=== PATIENT | female | born 1985 | race Caucasian/White ===

== ENCOUNTER 2019-01-19 04:40 | Observation (INO) | payer OTHER ==
[~2019-01-19] VITALS: Ht 170.2 cm; Wt 71.8 kg
[2019-01-19] MEDS ORDERED: MORPHINE SULFATE 4 MG/ML, 1ML ONE ×2 (05:15→06:26)
[2019-01-19] MEDS ORDERED: ONDANSETRON 2MG/ML, 2ML ONE (05:15)
[2019-01-19] MEDS: MORPHINE SULFATE 4 MG/ML, 1ML IVPush PRN ×2 (05:18→06:28)
--- NOTE | 2019-01-19 05:23 | NUR ---
PT HERE FOR VAGINAL BLEEDING THAT STARTED THURSDAY. CRAMPING HAS GOTTEN PROGRESSIVELY WORSE SINCE THURSDAY. VSS. PIV PLACED. PT MEDICATED FOR PAIN. PT NOW RESTING AND NO OTHER NEEDS AT THIS TIME. CALL LIGHT IN REACH
[2019-01-19] MEDS ORDERED: SODIUM CHLORIDE FLUSH 10ML SYR IVF ONE (05:30)
[2019-01-19] MEDS ORDERED: ONDANSETRON 2MG/ML, 2ML IVPush ONE (05:30)
[2019-01-19] MEDS: PLEASE ENTER ALLERGIES MC SCH ×2 (05:30→13:30)
--- NOTE | 2019-01-19 05:30 | NUR ---
PT TO US.
[2019-01-19 05:51] LABS: BASOPHILS # (AUTO) 0.04 x10^3/uL (0-0.1); BASOPHILS % (AUTO) 0 % (0-1); EOSINOPHILS # (AUTO) 0.29 x10^3/uL (0-0.4); EOSINOPHILS % (AUTO) 3 % (1-7); LYMPHOCYTES # (AUTO) 3.04 x10^3/uL (1-3.4); LYMPHOCYTES % (AUTO) 32 % (22-44); MD NO; MEAN CORPUSCULAR HEMOGLOBIN 30.2 pg (27.0-34.8); MEAN CORPUSCULAR VOLUME 88.7 fL (80-100); MEAN PLATELET VOLUME 8.6 fL (7.4-10.4); MONOCYTES # (AUTO) 0.73 x10^3/uL (0.2-0.8); MONOCYTES % (AUTO) 8 % (2-9); NEUTROPHILS # (AUTO) 5.53 x10^3/uL (1.8-6.8); NEUTROPHILS % (AUTO) 58 % (42-75); PLATELET COUNT 266 x10^3/uL (130-400); RED BLOOD COUNT 4.08 x10^6/uL (3.82-5.3); RED CELL DISTRIBUTION WIDTH 12.8 % (9.6-15.2)
[2019-01-19 05:56] LABS: ALBUMIN 3.5 g/dL (3.4-5.0); ANION GAP 8 mmol/L (5-15); CALCIUM 8.5 mg/dL (8.5-10.1); CHLORIDE 110 mmol/L (98-107)
--- NOTE | 2019-01-19 06:32 | NUR ---
PT REMEDICATED FOR PAIN. VSS. WAITING FOR US RESULTS. CALL LIGHT IN REACH
--- NOTE | 2019-01-19 07:06 | NUR ---
REPORT TO CADE LOMELI
--- NOTE | 2019-01-19 07:24 | NUR ---
RECEIVED REPORT AND ASSUMED PT. CARE. PT. IS RESTING WITHOUT CONCERNS. ANTONIO MATT TO THE PT.'S BEDSIDE TO DISCUSS THE PLAN OF CARE. 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 PT. HAS THE CALL LIGHT IN PLACE AND THE SIDERAILS REMAIN UP X 2.
[2019-01-19] MEDS ORDERED: DIAZEPAM 5 MG/ML, 2ML IV ONE (07:30)
--- NOTE | 2019-01-19 07:51 | NUR ---
PT. WAS MEDICATED ORDERED. PT. HAS THE PULSE OX AND BP CUFF IN PLACE. PT.'S CHUX WAS CHANGED AND SKIN CARE GIVEN. MODERATE AMOUNT OF BLOOD PRESENT. PT. HAS THE SIDERAILS UP X 2 AND THE CALL LIGHT IS IN PLACE.
[2019-01-19] MEDS ORDERED: SODIUM CHLORIDE 0.9% 1,000 ML IV ONE (08:16)
[2019-01-19] MEDS ORDERED: DIAZEPAM 5 MG/ML, 2ML IV PRN (08:30)
[2019-01-19] MEDS ORDERED: SODIUM CHLORIDE FLUSH 10ML SYR IVF PRN (08:30)
[2019-01-19] MEDS ORDERED: ONDANSETRON 2MG/ML, 2ML IVPush PRN (08:30)
--- NOTE | 2019-01-19 08:48 | NUR ---
PT. STATES RELIEF FROM MEDICATIONS. PT. IS RESTING WITH THE HOB ELEVATED GREATER THAN 30 DEGREES. PT. HAS BLANKETS IN PLACE FOR WARMTH. SIDERAILS REMAIN UP X 2 WITH THE CALL LIGHT IN PLACE. VSS.
--- NOTE | 2019-01-19 09:54 | NUR ---
NO CHANGES AT THIS TIME.
--- NOTE | 2019-01-19 10:36 | NUR ---
PT. HAS C/O PAIN RETURNING. DISCUSSED WITH ANTONIO ESCOBAR. PT. WAS MEDICATED ORDERED. REPORT WAS CALLED TO BORIS LOMELI. PT. IS RTG.
[2019-01-19] MEDS ORDERED: HYDROmorphone 2 MG/ML, 1ML ONE (10:42)
[2019-01-19] MEDS ORDERED: HYDROmorphone 2 MG/ML, 1ML IVPush PRN (11:00)
[2019-01-19 12:15] VITALS: BP 103/63
[2019-01-19] MEDS ORDERED: MISOPROSTOL 200 MCG TABLET ONE (15:53)
[2019-01-19] MEDS ORDERED: BUPIVACAINE/PF 0.25% ONE (15:53)
[2019-01-19] MEDS ORDERED: OXYTOCIN 10 UNITS/ML, 1ML ONE (15:54)
[2019-01-19] MEDS ORDERED: EPINEPHRINE 1 MG/ML, 1ML ONE (15:54)
[2019-01-19] MEDS ORDERED: METHYLERGONOVINE 0.2 MG/ML IM ONE (15:54)
[2019-01-19] MEDS ORDERED: FENTANYL PF 250 MCG/5ML ONE (16:06)
[2019-01-19] MEDS ORDERED: MIDAZOLAM 1 MG/ML, 2ML ONE (16:06)
[2019-01-19] MEDS ORDERED: LIDOCAINE-MPF 2% ,5ML ONE (16:07)
[2019-01-19] MEDS ORDERED: PROPOFOL 10 MG/ML, 20ML ONE (16:07)
== END 2019-01-19 17:30 | disposition home or self-care (01) ==
LOC: ED 07:12 → EDIP 08:16 → 3NW 11:13
PROVIDERS: ADMIT Obstetrics & Gynecology Reproductive Endocrinology; ATTEND Obstetrics & Gynecology Reproductive Endocrinology
DX: O30.002 Twin pregnancy, unspecified number of placenta and unspecified number of amniotic sacs, second trimester (principal); O21.9 Vomiting of pregnancy, unspecified; O36.4XX0 Maternal care for intrauterine death, not applicable or unspecified; Z3A.10 10 weeks gestation of pregnancy
CPT/HCPCS: 36415; 76801; 80048; 82040; 84702; 85025; 86901; 96374; 96375; 96376; 99284; G0378; J0171; J1170; J2250; J2405; J2704; J3360; J3490; J3010; J2210; J2270; J2590

== ENCOUNTER → 2019-01-26 | Outpatient (CLI) | payer OTHER | END | disposition home or self-care (01) | LOC: LAB 16:03 | PROVIDERS: ATTEND Obstetrics & Gynecology Reproductive Endocrinology | DX: N94.9 Unspecified condition associated with female genital organs and menstrual cycle (principal); N91.2 Amenorrhea, unspecified | CPT/HCPCS: 36415; 81256; 84702 ==

== ENCOUNTER → 2019-02-03 | Outpatient (CLI) | payer OTHER | END | disposition home or self-care (01) | LOC: LAB 17:25 | PROVIDERS: ATTEND Obstetrics & Gynecology Reproductive Endocrinology | DX: N91.2 Amenorrhea, unspecified (principal) | CPT/HCPCS: 36415; 84702 ==

== ENCOUNTER → 2019-02-10 | Outpatient (CLI) | payer OTHER | END | disposition home or self-care (01) | LOC: LAB 17:40 | PROVIDERS: ATTEND Obstetrics & Gynecology Reproductive Endocrinology | DX: N91.2 Amenorrhea, unspecified (principal) | CPT/HCPCS: 36415; 84702 ==

== ENCOUNTER 2019-02-11 10:03 | Outpatient (CLI) | payer OTHER ==
[2019-02-11 10:40] LABS: BASOPHILS # (AUTO) 0.03 x10^3/uL (0-0.1); BASOPHILS % (AUTO) 1 % (0-1); EOSINOPHILS % (AUTO) 2 % (1-7); LYMPHOCYTES # (AUTO) 2.24 x10^3/uL (1-3.4); LYMPHOCYTES % (AUTO) 36 % (22-44); MD NO; MEAN CORPUSCULAR HEMOGLOBIN 29.9 pg (27.0-34.8); MEAN CORPUSCULAR HGB CONC 32.6 g/dL (32.4-35.8); MEAN CORPUSCULAR VOLUME 91.8 fL (80-100); MEAN PLATELET VOLUME 8.9 fL (7.4-10.4); MONOCYTES # (AUTO) 0.45 x10^3/uL (0.2-0.8); MONOCYTES % (AUTO) 7 % (2-9); NEUTROPHILS # (AUTO) 3.45 x10^3/uL (1.8-6.8); NEUTROPHILS % (AUTO) 55 % (42-75); PLATELET COUNT 271 x10^3/uL (130-400); RED BLOOD COUNT 4.39 x10^6/uL (3.82-5.3); RED CELL DISTRIBUTION WIDTH 13.3 % (9.6-15.2)
[2019-02-11 10:48] LABS: ALANINE AMINOTRANSFERASE 35 U/L (12-78); ALBUMIN 4.2 g/dL (3.4-5.0); ANION GAP 8 mmol/L (5-15); CALCIUM 8.9 mg/dL (8.5-10.1); CHLORIDE 106 mmol/L (98-107)
[2019-02-11 10:57] LABS: ALKALINE PHOSPHATASE 52 U/L (45-117); BILIRUBIN,TOTAL 0.5 mg/dL (0.2-1.0); CHOL/HDL RATIO 3.8; CHOLESTEROL, TOTAL 221 mg/dL (140-239); CREATININE 0.76 mg/dL (0.55-1.02); HDL CHOL % 26 % (28-40); HDL CHOLESTEROL (DIRECT) 58 mg/dL (40-60); LDL CHOLESTEROL,CALCULATED 137 mg/dL (54-169); LDL/HDL RATIO 2.4 (0.5-3.0); TOTAL PROTEIN 8.4 g/dL (6.4-8.2); TRIGLYCERIDES 131 mg/dL (50-200); VLDL CHOLESTEROL 26 mg/dL (0-25)
== END 2019-02-11 23:59 | disposition home or self-care (01) ==
LOC: LAB 10:03
PROVIDERS: ATTEND Obstetrics & Gynecology Reproductive Endocrinology
DX: Z13.220 Encounter for screening for lipoid disorders (principal); Z12.11 Encounter for screening for malignant neoplasm of colon; Z12.4 Encounter for screening for malignant neoplasm of cervix; M35.8 Other specified systemic involvement of connective tissue; O03.9 Complete or unspecified spontaneous abortion without complication
CPT/HCPCS: 36415; 80053; 80061; 82306; 84443; 85025; 85613; 85670; 85705; 85732; 86146; 86147; 86148